=== PATIENT | male | born 1970 | race African-American/Black ===

== ENCOUNTER 2020-01-24 17:27 | Inpatient (IN) | payer MEDICAID ==
[~2020-01-24] VITALS: Ht 188 cm; Wt 111.0 kg
--- NOTE | 2020-01-24 18:03 | NUR ---
PT TO ROOM VIA WHEELCHAIR FROM TRIAGE. C/O PERSISTANT +SOB, RPTS THAT HE WAS SEEN AT [facility] LAST WEEK AND WAS D/C, BUT IS STILL EXPERIENCING SOB. PTS POSITION OF COMFORT IS TO BE SITTING UPRIGHT, IS UNABLE TO LAY BACK SOB INCREASES. LUNG SOUNDS DECREASED T/O WITH FAINT CRACKLES T/O. PT W/ HX OF CHF AND HAS A PACEMAKER.
--- NOTE | 2020-01-24 18:03 | NUR ---
RA SATS 88-89% 1L NC PLACED WITH EFFECT.
--- NOTE | 2020-01-24 18:05 | NUR ---
CALL LIGHT W/I REACH. AWAITING PROVIDER EVAL.
[2020-01-24] MEDS ORDERED: SODIUM CHLORIDE FLUSH 10ML SYR IVF ONE (18:30)
[2020-01-24 18:46] LABS: BASOPHILS # (AUTO) 0.02 x10^3/uL (0-0.1); BASOPHILS % (AUTO) 0 % (0-1); EOSINOPHILS # (AUTO) 0.17 x10^3/uL (0-0.4); EOSINOPHILS % (AUTO) 2 % (1-7); LYMPHOCYTES # (AUTO) 0.76 x10^3/uL (1-3.4); LYMPHOCYTES % (AUTO) 10 % (22-44); MD NO; MEAN CORPUSCULAR HEMOGLOBIN 26.8 pg (27.5-34.5); MEAN CORPUSCULAR HGB CONC 32.2 g/dL (33.2-36.2); MEAN CORPUSCULAR VOLUME 83.3 fL (81-97); MEAN PLATELET VOLUME 7.6 fL (7.4-10.4); MONOCYTES # (AUTO) 0.62 x10^3/uL (0.2-0.8); MONOCYTES % (AUTO) 8 % (2-9); NEUTROPHILS # (AUTO) 6.48 x10^3/uL (1.8-6.8); NEUTROPHILS % (AUTO) 81 % (42-75); PLATELET COUNT 418 x10^3/uL (130-400); RED BLOOD COUNT 4.83 x10^6/uL (4.38-5.82); RED CELL DISTRIBUTION WIDTH 16.4 % (9.4-14.8)
[2020-01-24 18:59] LABS: ALBUMIN 3.3 g/dL (3.4-5.0); ANION GAP 7 mmol/L (5-15); CALCIUM 9.1 mg/dL (8.5-10.1); CHLORIDE 107 mmol/L (98-107); CREATININE 1.45 mg/dL (0.7-1.3)
[2020-01-24] MEDS ORDERED: AZITHROMYCIN 500 MG in SODIUM CHLORIDE 0.9% 250 ML IVPB ONE (19:00)
[2020-01-24] MEDS ORDERED: CEFTRIAXONE PMX 1GM/50ML 50 ML IVPB ONE (19:00)
[2020-01-24 19:02] LABS: TROPONIN I < 0.015 ng/mL (0.000-0.045)
--- NOTE | 2020-01-24 19:20 | NUR ---
RECEIVED REPORT FROM NETTA BENDER. PT SITTING IN BED, IN A POSITION OF COMFORT. O2 INCREASED FROM 1L TO 2L, FOR COMFORT AND O2 SAT FROM 91 TO 98. PT DENIES PAIN, LAUGHING AT THE TV, UPDATED ON POC. WILL CONTINUE TO MONITOR AND WATCH FOR ORDERS.
[2020-01-24] MEDS ORDERED: CEFTRIAXONE PMX 1GM/50ML 50 ML ONE (19:23)
[2020-01-24] MEDS ORDERED: SPIR25TA5 PO (19:54)
[2020-01-24] MEDS ORDERED: FURO20TA3 PO (19:54)
[2020-01-24] MEDS ORDERED: POTASSIUM CL PO (19:54)
[2020-01-24] MEDS ORDERED: MAGN400T9 PO (19:54)
[2020-01-24] MEDS ORDERED: ONDANSETRON ODT 4 MG PO PRN (20:00)
[2020-01-24] MEDS ORDERED: GUAIFENESIN/DM 200-20MG, 10ML UDC PO PRN (20:00)
[2020-01-24] MEDS ORDERED: POLYETHYLENE GLYCOL 17 GM PACKET PO PRN (20:00)
[2020-01-24] MEDS ORDERED: BISACODYL 10 MG SUPP PR PRN (20:00)
[2020-01-24] MEDS ORDERED: ACETAMINOPHEN 325 MG TABLET PO PRN (20:00)
--- NOTE | 2020-01-24 20:32 | NUR ---
CONFRIMED BLOOD CULTURES HAD BEEN DRAWN BEFORE IV ABX STARTED.
[2020-01-24] MEDS: AZITHROMYCIN 500 MG in SODIUM CHLORIDE 0.9% 250 ML IV SCH (20:41)
[2020-01-24] MEDS: CEFTRIAXONE PMX 1GM/50ML 50 ML IV SCH (20:41)
--- NOTE | 2020-01-24 20:44 | NUR ---
PT CONDITION UNCHANGED. NO SIGNS OF DISTRESS, NO COMPLAINTS, CALL LIGHT WITHIN REACH. WILL CONTINUE TO MONITOR.
[2020-01-24] MEDS: POTASSIUM CHLORIDE 20 MEQ TAB.ER.PRT PO SCH ×2 (21:00→22:48)
--- NOTE | 2020-01-24 21:09 | NUR ---
REPORT GIVEN TO NETTA TEJEDA. PT SITTING IN BED, UPDATED ON POC. ALL NEEDS MET AT THIS TIME.
[2020-01-24] MEDS ORDERED: LOSA50TA14 PO (21:45)
[2020-01-24 22:01] VITALS: BP 126/94
[2020-01-24] MEDS: CARVEDILOL 6.25 MG TABLET PO SCH (22:43)
[2020-01-24] MEDS: HEPARIN 5,000 UNITS/ML, 1ML SQ SCH (22:47)
[2020-01-24] MEDS: FUROSEMIDE 40 MG/4 ML IV SCH (22:47)
[2020-01-24] MEDS: SODIUM CHLORIDE FLUSH 10ML SYR IVF SCH (22:48)
[2020-01-24 22:53] VITALS: BP 118/88
[2020-01-25 01:26] VITALS: BP 130/83
[2020-01-25 05:09] VITALS: BP 139/90
[2020-01-25] MEDS: HEPARIN 5,000 UNITS/ML, 1ML SQ SCH ×3 (05:17→20:04)
[2020-01-25] MEDS: CARVEDILOL 6.25 MG TABLET PO SCH ×2 (05:17→17:10)
[2020-01-25 06:14] VITALS: BP 136/102
[2020-01-25 06:37] VITALS: BP 131/93
[2020-01-25 07:11] LABS: MEAN CORPUSCULAR HEMOGLOBIN 26.9 pg (27.5-34.5); MEAN CORPUSCULAR HGB CONC 31.9 g/dL (33.2-36.2); MEAN CORPUSCULAR VOLUME 84.2 fL (81-97); MEAN PLATELET VOLUME 7.3 fL (7.4-10.4); PLATELET COUNT 401 x10^3/uL (130-400); RED BLOOD COUNT 4.78 x10^6/uL (4.38-5.82); RED CELL DISTRIBUTION WIDTH 16.1 % (9.4-14.8)
[2020-01-25 07:16] LABS: ANION GAP 9 mmol/L (5-15); CHLORIDE 107 mmol/L (98-107); CREATININE 1.35 mg/dL (0.7-1.3)
[2020-01-25 07:29] LABS: BASOPHILS # (AUTO) 0.02 x10^3/uL (0-0.1); BASOPHILS % (AUTO) 0 % (0-1); EOSINOPHILS # (AUTO) 0.18 x10^3/uL (0-0.4); EOSINOPHILS % (AUTO) 2 % (1-7); LYMPHOCYTES # (AUTO) 1.07 x10^3/uL (1-3.4); LYMPHOCYTES % (AUTO) 13 % (22-44); MD SCAN; MONOCYTES % (AUTO) 9 % (2-9); NEUTROPHILS # (AUTO) 6.16 x10^3/uL (1.8-6.8); NEUTROPHILS % (AUTO) 76 % (42-75)
[2020-01-25] MEDS: MAGNESIUM OXIDE 400 MG TABLET PO SCH (08:05)
[2020-01-25] MEDS: LISINOPRIL 5 MG TABLET PO SCH (08:05)
[2020-01-25] MEDS: POTASSIUM CHLORIDE 20 MEQ TAB.ER.PRT PO SCH ×2 (08:06→20:04)
[2020-01-25] MEDS: SPIRONOLACTONE 25 MG TABLET PO SCH (08:06)
[2020-01-25] MEDS: SENNA/DOCUSATE TABLET PO SCH (08:06)
[2020-01-25] MEDS ORDERED: POTASSIUM CL 20 MEQ PO SCH (09:00)
[2020-01-25] MEDS: FUROSEMIDE 40 MG/4 ML IV SCH (09:21)
[2020-01-25] MEDS: SODIUM CHLORIDE FLUSH 10ML SYR IVF SCH ×2 (09:21→20:05)
[2020-01-25 12:42] VITALS: BP 131/91
[2020-01-25] MEDS: ALBUTEROL SULFATE 2.5 MG/3 ML NPPB PRN (15:46)
[2020-01-25 19:12] VITALS: BP 129/75
[2020-01-25] MEDS: CEFTRIAXONE PMX 1GM/50ML 50 ML IV SCH (20:04)
[2020-01-25] MEDS: AZITHROMYCIN 500 MG in SODIUM CHLORIDE 0.9% 250 ML IV SCH (20:56)
[2020-01-26 00:14] VITALS: BP 116/78
[2020-01-26] MEDS: HEPARIN 5,000 UNITS/ML, 1ML SQ SCH ×3 (05:02→20:48)
[2020-01-26] MEDS: CARVEDILOL 6.25 MG TABLET PO SCH ×2 (05:02→17:01)
[2020-01-26 06:26] LABS: ANION GAP 6 mmol/L (5-15); CALCIUM 9.1 mg/dL (8.5-10.1); CHLORIDE 109 mmol/L (98-107)
[2020-01-26 06:28] LABS: CREATININE 1.25 mg/dL (0.7-1.3)
[2020-01-26 07:17] VITALS: BP 128/86
[2020-01-26] MEDS: LISINOPRIL 5 MG TABLET PO SCH (08:01)
[2020-01-26] MEDS: FUROSEMIDE 40 MG/4 ML IV SCH (08:01)
[2020-01-26] MEDS: SODIUM CHLORIDE FLUSH 10ML SYR IVF SCH ×2 (08:01→19:56)
[2020-01-26] MEDS: POTASSIUM CHLORIDE 20 MEQ TAB.ER.PRT PO SCH ×2 (08:01→12:23)
[2020-01-26] MEDS: MAGNESIUM OXIDE 400 MG TABLET PO SCH (08:01)
[2020-01-26] MEDS: SPIRONOLACTONE 25 MG TABLET PO SCH (08:01)
[2020-01-26] MEDS: SENNA/DOCUSATE TABLET PO SCH (08:01)
[2020-01-26] MEDS: ALBUTEROL SULFATE 2.5 MG/3 ML NPPB PRN (11:30)
[2020-01-26 12:10] VITALS: BP 129/95
[2020-01-26 19:34] VITALS: BP 124/86
[2020-01-26] MEDS: CEFTRIAXONE PMX 1GM/50ML 50 ML IV SCH (19:56)
[2020-01-26] MEDS: AZITHROMYCIN 500 MG in SODIUM CHLORIDE 0.9% 250 ML IV SCH (20:48)
[2020-01-27 01:43] VITALS: BP 123/87
[2020-01-27 04:52] LABS: ANION GAP 4 mmol/L (5-15); CALCIUM 8.8 mg/dL (8.5-10.1); CHLORIDE 108 mmol/L (98-107); CREATININE 1.36 mg/dL (0.7-1.3)
[2020-01-27] MEDS: CARVEDILOL 6.25 MG TABLET PO SCH ×2 (05:06→16:50)
[2020-01-27] MEDS: HEPARIN 5,000 UNITS/ML, 1ML SQ SCH ×3 (05:06→20:50)
[2020-01-27 07:40] VITALS: BP 123/88
[2020-01-27] MEDS: POTASSIUM CHLORIDE 20 MEQ TAB.ER.PRT PO SCH (08:34)
[2020-01-27] MEDS: FUROSEMIDE 40 MG/4 ML IV SCH (08:34)
[2020-01-27] MEDS: SODIUM CHLORIDE FLUSH 10ML SYR IVF SCH ×2 (08:35→20:51)
[2020-01-27] MEDS: MAGNESIUM OXIDE 400 MG TABLET PO SCH (08:35)
[2020-01-27] MEDS: SPIRONOLACTONE 25 MG TABLET PO SCH (08:35)
[2020-01-27] MEDS: SENNA/DOCUSATE TABLET PO SCH (08:35)
[2020-01-27] MEDS: SACUBITRIL/VALSARTAN 24MG-26MG TAB PO SCH ×2 (08:35→20:58)
[2020-01-27 14:50] VITALS: BP 124/94
[2020-01-27 15:58] LABS: C-REACTIVE PROTEIN, QUANT 1.9 mg/dL (0.02-0.49)
[2020-01-27] MEDS: FUROSEMIDE 40 MG TABLET PO SCH (16:50)
[2020-01-27] MEDS ORDERED: OMNIPAQUE 350 MG/ML, 75ML BOTTLE ONE (17:51)
[2020-01-27] MEDS: GUAIFENESIN ER 600 MG TABLET PO SCH (20:51)
[2020-01-27] MEDS: CEFTRIAXONE PMX 1GM/50ML 50 ML IV SCH (20:58)
[2020-01-27] MEDS: DOXYCYCLINE 100MG TABLET PO SCH (20:59)
[2020-01-28 02:46] VITALS: BP 125/82
[2020-01-28] MEDS: HEPARIN 5,000 UNITS/ML, 1ML SQ SCH ×3 (05:13→21:01)
[2020-01-28] MEDS: CARVEDILOL 6.25 MG TABLET PO SCH (05:13)
[2020-01-28 07:21] LABS: ALANINE AMINOTRANSFERASE 14 U/L (12-78); ANION GAP 9 mmol/L (5-15); BILIRUBIN, DIRECT 0.3 mg/dL (0.1-0.2); CALCIUM 9.1 mg/dL (8.5-10.1); CHLORIDE 107 mmol/L (98-107); CREATININE 1.14 mg/dL (0.7-1.3)
[2020-01-28 07:24] LABS: ALKALINE PHOSPHATASE 56 U/L (45-117); BILIRUBIN,TOTAL 1.3 mg/dL (0.2-1.0); TOTAL PROTEIN 7.6 g/dL (6.4-8.2)
[2020-01-28 07:27] LABS: BASOPHILS # (AUTO) 0.05 x10^3/uL (0-0.1); BASOPHILS % (AUTO) 1 % (0-1); EOSINOPHILS # (AUTO) 0.26 x10^3/uL (0-0.4); EOSINOPHILS % (AUTO) 4 % (1-7); LYMPHOCYTES # (AUTO) 1.28 x10^3/uL (1-3.4); LYMPHOCYTES % (AUTO) 20 % (22-44); MD NO; MEAN CORPUSCULAR HEMOGLOBIN 27.2 pg (27.5-34.5); MEAN CORPUSCULAR HGB CONC 32.6 g/dL (33.2-36.2); MEAN CORPUSCULAR VOLUME 83.6 fL (81-97); MEAN PLATELET VOLUME 7.4 fL (7.4-10.4); MONOCYTES # (AUTO) 0.83 x10^3/uL (0.2-0.8); MONOCYTES % (AUTO) 13 % (2-9); NEUTROPHILS # (AUTO) 3.96 x10^3/uL (1.8-6.8); NEUTROPHILS % (AUTO) 62 % (42-75); PLATELET COUNT 399 x10^3/uL (130-400); RED BLOOD COUNT 4.82 x10^6/uL (4.38-5.82); RED CELL DISTRIBUTION WIDTH 16.2 % (9.4-14.8)
[2020-01-28 07:32] LABS: INTERNATIONAL NORMALIZED RATIO 1.16 (0.93-1.1); PROTHROMBIN TIME 12.3 Seconds (9.6-11.5)
[2020-01-28] MEDS: SODIUM CHLORIDE FLUSH 10ML SYR IVF SCH ×2 (07:54→21:02)
[2020-01-28] MEDS: POTASSIUM CHLORIDE 20 MEQ TAB.ER.PRT PO SCH (07:54)
[2020-01-28] MEDS: SPIRONOLACTONE 25 MG TABLET PO SCH (07:54)
[2020-01-28] MEDS: SENNA/DOCUSATE TABLET PO SCH (07:54)
[2020-01-28] MEDS: SACUBITRIL/VALSARTAN 24MG-26MG TAB PO SCH ×2 (07:54→21:02)
[2020-01-28] MEDS: MAGNESIUM OXIDE 400 MG TABLET PO SCH (07:54)
[2020-01-28] MEDS: GUAIFENESIN ER 600 MG TABLET PO SCH ×2 (07:54→21:03)
[2020-01-28] MEDS: DOXYCYCLINE 100MG TABLET PO SCH ×2 (07:54→21:02)
[2020-01-28] MEDS: FUROSEMIDE 40 MG TABLET PO SCH ×2 (07:54→16:53)
[2020-01-28 08:00] VITALS: BP 152/113
[2020-01-28 14:00] VITALS: BP 119/93
[2020-01-28] MEDS: CARVEDILOL 12.5 MG TABLET PO SCH (16:53)
[2020-01-28 20:00] VITALS: BP 112/82
[2020-01-28] MEDS: CEFTRIAXONE PMX 1GM/50ML 50 ML IV SCH (21:00)
[2020-01-29 02:00] VITALS: BP 119/83
[2020-01-29] MEDS: HEPARIN 5,000 UNITS/ML, 1ML SQ SCH ×3 (03:18→20:33)
[2020-01-29] MEDS: CARVEDILOL 12.5 MG TABLET PO SCH ×2 (06:20→17:19)
[2020-01-29 08:00] VITALS: BP 103/49
[2020-01-29] MEDS: GUAIFENESIN ER 600 MG TABLET PO SCH ×2 (08:04→20:33)
[2020-01-29] MEDS: SPIRONOLACTONE 25 MG TABLET PO SCH (08:04)
[2020-01-29] MEDS: POTASSIUM CHLORIDE 20 MEQ TAB.ER.PRT PO SCH (08:04)
[2020-01-29] MEDS: SACUBITRIL/VALSARTAN 24MG-26MG TAB PO SCH ×2 (08:04→20:33)
[2020-01-29] MEDS: SENNA/DOCUSATE TABLET PO SCH (08:04)
[2020-01-29] MEDS: DOXYCYCLINE 100MG TABLET PO SCH ×2 (08:04→20:33)
[2020-01-29] MEDS: MAGNESIUM OXIDE 400 MG TABLET PO SCH (08:04)
[2020-01-29] MEDS: SODIUM CHLORIDE FLUSH 10ML SYR IVF SCH ×2 (08:04→20:33)
[2020-01-29] MEDS: FUROSEMIDE 40 MG TABLET PO SCH ×2 (08:05→17:19)
[2020-01-29 13:35] VITALS: BP 112/87
[2020-01-29 20:30] VITALS: BP 113/83
[2020-01-29] MEDS: CEFTRIAXONE PMX 1GM/50ML 50 ML IV SCH (20:32)
[2020-01-30 02:49] VITALS: BP 105/75
[2020-01-30] MEDS: HEPARIN 5,000 UNITS/ML, 1ML SQ SCH ×3 (04:54→22:21)
[2020-01-30] MEDS: CARVEDILOL 12.5 MG TABLET PO SCH ×2 (04:54→16:24)
[2020-01-30] MEDS: MAGNESIUM OXIDE 400 MG TABLET PO SCH (07:52)
[2020-01-30] MEDS: DOXYCYCLINE 100MG TABLET PO SCH ×2 (07:52→22:22)
[2020-01-30] MEDS: POTASSIUM CHLORIDE 20 MEQ TAB.ER.PRT PO SCH (07:52)
[2020-01-30] MEDS: FUROSEMIDE 40 MG TABLET PO SCH ×2 (07:52→16:24)
[2020-01-30] MEDS: GUAIFENESIN ER 600 MG TABLET PO SCH ×2 (07:52→22:22)
[2020-01-30] MEDS: SODIUM CHLORIDE FLUSH 10ML SYR IVF SCH ×2 (07:52→22:24)
[2020-01-30] MEDS: SACUBITRIL/VALSARTAN 24MG-26MG TAB PO SCH ×2 (07:52→22:21)
[2020-01-30] MEDS: SPIRONOLACTONE 25 MG TABLET PO SCH (07:52)
[2020-01-30] MEDS: SENNA/DOCUSATE TABLET PO SCH (07:55)
[2020-01-30 08:00] VITALS: BP 126/90
[2020-01-30] MEDS ORDERED: TEMAZEPAM 15 MG CAPSULE PO PRN (10:30)
[2020-01-30 14:08] VITALS: BP 114/71
[2020-01-30 20:30] VITALS: BP 113/73
[2020-01-30] MEDS: CEFTRIAXONE PMX 1GM/50ML 50 ML IV SCH (22:23)
[2020-01-31 02:27] VITALS: BP 99/66
[2020-01-31] MEDS: HEPARIN 5,000 UNITS/ML, 1ML SQ SCH ×3 (04:28→20:41)
[2020-01-31] MEDS ORDERED: ALUMINUM/MAG/SIMETHICONE 30 ML UDC PO PRN (04:30)
[2020-01-31 05:41] VITALS: BP 115/66
[2020-01-31] MEDS: CARVEDILOL 12.5 MG TABLET PO SCH ×2 (05:43→17:26)
[2020-01-31 05:49] LABS: ALBUMIN 3.2 g/dL (3.4-5.0); ANION GAP 4 mmol/L (5-15); CALCIUM 9.4 mg/dL (8.5-10.1); CHLORIDE 104 mmol/L (98-107)
[2020-01-31 05:52] LABS: ALANINE AMINOTRANSFERASE 23 U/L (12-78); ALKALINE PHOSPHATASE 59 U/L (45-117); BILIRUBIN,TOTAL 0.7 mg/dL (0.2-1.0); CREATININE 1.21 mg/dL (0.7-1.3); TOTAL PROTEIN 8.3 g/dL (6.4-8.2)
[2020-01-31 07:36] VITALS: BP 105/78
[2020-01-31] MEDS: SODIUM CHLORIDE FLUSH 10ML SYR IVF SCH ×2 (09:00→20:41)
[2020-01-31] MEDS: SENNA/DOCUSATE TABLET PO SCH (09:00)
[2020-01-31] MEDS: DOXYCYCLINE 100MG TABLET PO SCH ×2 (09:28→20:41)
[2020-01-31] MEDS: MAGNESIUM OXIDE 400 MG TABLET PO SCH (09:28)
[2020-01-31] MEDS: SPIRONOLACTONE 25 MG TABLET PO SCH (09:28)
[2020-01-31] MEDS: GUAIFENESIN ER 600 MG TABLET PO SCH ×2 (09:28→20:41)
[2020-01-31] MEDS: SACUBITRIL/VALSARTAN 24MG-26MG TAB PO SCH ×2 (09:28→20:41)
[2020-01-31] MEDS: FUROSEMIDE 40 MG TABLET PO SCH ×2 (09:28→17:26)
[2020-01-31] MEDS: POTASSIUM CHLORIDE 20 MEQ TAB.ER.PRT PO SCH (09:28)
[2020-01-31 14:01] VITALS: BP 105/71
[2020-01-31] MEDS: CEFTRIAXONE PMX 1GM/50ML 50 ML IV SCH (20:40)
[2020-01-31 20:48] VITALS: BP 94/67
[2020-02-01 01:30] VITALS: BP 114/80
[2020-02-01] MEDS: HEPARIN 5,000 UNITS/ML, 1ML SQ SCH ×2 (04:22→12:09)
[2020-02-01] MEDS: CARVEDILOL 12.5 MG TABLET PO SCH (05:31)
[2020-02-01 05:32] VITALS: BP 105/67
[2020-02-01 07:12] VITALS: BP 98/64
[2020-02-01 07:19] LABS: CHLORIDE 104 mmol/L (98-107)
[2020-02-01 07:27] LABS: ANION GAP 7 mmol/L (5-15); CALCIUM 9.9 mg/dL (8.5-10.1); CREATININE 1.31 mg/dL (0.7-1.3)
[2020-02-01] MEDS: SACUBITRIL/VALSARTAN 24MG-26MG TAB PO SCH (09:13)
[2020-02-01] MEDS: DOXYCYCLINE 100MG TABLET PO SCH (09:13)
[2020-02-01] MEDS: MAGNESIUM OXIDE 400 MG TABLET PO SCH (09:13)
[2020-02-01] MEDS: FUROSEMIDE 40 MG TABLET PO SCH (09:14)
[2020-02-01] MEDS: GUAIFENESIN ER 600 MG TABLET PO SCH (09:14)
[2020-02-01] MEDS: SODIUM CHLORIDE FLUSH 10ML SYR IVF SCH (09:14)
[2020-02-01] MEDS: SPIRONOLACTONE 25 MG TABLET PO SCH (09:14)
[2020-02-01] MEDS: POTASSIUM CHLORIDE 20 MEQ TAB.ER.PRT PO SCH (09:14)
[2020-02-01] MEDS: SENNA/DOCUSATE TABLET PO SCH (09:15)
[2020-02-01] MEDS ORDERED: SIMETHICONE 80 MG CHEW TAB PO PRN (11:30)
[2020-02-01 12:56] VITALS: BP 102/72
[2020-02-01] MEDS ORDERED: POTASSIUM CL PO (14:37)
[2020-02-01] MEDS ORDERED: SACU1TAB PO (14:37)
[2020-02-01] MEDS ORDERED: CARV12.52 PO (14:37)
[2020-02-01] MEDS ORDERED: FURO-92 PO (14:37)
== END 2020-02-01 17:00 | disposition home or self-care (01) | DRG 133 ==
LOC: ED 19:59 → EDIP 21:29 → 4WST 21:30 → ICU 01-27 12:39 → 5SO 01-30 20:08 → DCLOUNGE 02-01 16:45
PROVIDERS: ADMIT Internal Medicine; ATTEND Hospitalist
DX: J96.01 Acute respiratory failure with hypoxia (principal); N17.0 Acute kidney failure with tubular necrosis; I47.2 Ventricular tachycardia; I50.43 Acute on chronic combined systolic (congestive) and diastolic (congestive) heart failure; I11.0 Hypertensive heart disease with heart failure; J15.9 Unspecified bacterial pneumonia; I27.20 Pulmonary hypertension, unspecified; I48.0 Paroxysmal atrial fibrillation; D64.9 Anemia, unspecified; E87.6 Hypokalemia; F12.90 Cannabis use, unspecified, uncomplicated; I25.10 Atherosclerotic heart disease of native coronary artery without angina pectoris; I25.5 Ischemic cardiomyopathy; Z20.828 Contact with and (suspected) exposure to other viral communicable diseases; R59.0 Localized enlarged lymph nodes; Z82.49 Family history of ischemic heart disease and other diseases of the circulatory system; Z83.3 Family history of diabetes mellitus; Z91.19 Patient's noncompliance with other medical treatment and regimen; Z95.810 Presence of automatic (implantable) cardiac defibrillator
CPT/HCPCS: 36415; 71045; 71260; 80048; 80053; 80076; 82040; 83605; 83615; 83735; 83880; 84145; 84484; 85025; 85379; 85610; 86140; 86480; 87015; 87040; 87070; 87081; 87116; 87205; 87206; 87806; 93005; 93306; 93356; 94640; 96365; 96375; 99285; G0378; J0456; J0696; J1644; J1940; J7613; Q0162; Q9967; G0475; J7050; U0001-CS

== ENCOUNTER 2020-03-19 05:51 | Inpatient (IN) | payer MEDICAID ==
[~2020-03-19] VITALS: Ht 188 cm; Wt 118.1 kg
[~2020-03-19 05:51] MED LIST: CARV12.52 PO; FURO-92 PO; FURO20TA3 PO; LOSA50TA14 PO; MAGN400T9 PO; POTASSIUM CL PO; SACU1TAB PO; SPIR25TA5 PO
[2020-03-19] MEDS ORDERED: SODIUM CHLORIDE 0.9% 1,000 ML IV ONE (05:55)
[2020-03-19] MEDS ORDERED: ADENOSINE 6 MG/2 ML ONE ×2 (05:59→08:00)
[2020-03-19] MEDS ORDERED: ADENOSINE 6 MG/2 ML IVPush ONE ×2 (06:00→06:30)
[2020-03-19] MEDS ORDERED: SODIUM CHLORIDE FLUSH 10ML SYR IVF ONE (06:00)
--- NOTE | 2020-03-19 06:15 | NUR ---
PT BIB EMS FOLLOWING HIS ICD FIRING TWICE THIS AM. PT WAS RECENTLY HOSPITALIZED FOR PNEUMONIA. UPON EMS ARRIVAL, PT HEART RATE WAS 180-188, ASYMPTOMATIC. PT PLACED ON GURNEY, EKG COMPLETED AND MONITORS PLACED. CODE CART IN ROOM, PT PLACED ON PADS PRIOR TO 6 MG ADENOSINE ADMIN. 6 MG WAS NOT ADEQUATE TO CONVERT PT. PT GIVEN ADDITIONAL 12MG ADENOSINE AND RATE SLOWED TO 100. EKG REPEATED. PT MEDICATED PER EMAR. WILL CONINUE TO MONITOR.
--- NOTE | 2020-03-19 06:21 | NUR ---
PT ICD BEING INTERROGATED AT THIS TIME.
[2020-03-19] MEDS ORDERED: MAGNESIUM SULFATE/D5W 100 ML IVPB ONE (06:30)
[2020-03-19 06:38] LABS: BASOPHILS # (AUTO) 0.02 x10^3/uL (0-0.1); BASOPHILS % (AUTO) 0 % (0-1); EOSINOPHILS # (AUTO) 0.13 x10^3/uL (0-0.4); EOSINOPHILS % (AUTO) 1 % (1-7); LYMPHOCYTES # (AUTO) 0.93 x10^3/uL (1-3.4); LYMPHOCYTES % (AUTO) 10 % (22-44); MD NO; MEAN CORPUSCULAR HEMOGLOBIN 27.3 pg (27.5-34.5); MEAN CORPUSCULAR HGB CONC 33.1 g/dL (33.2-36.2); MEAN CORPUSCULAR VOLUME 82.5 fL (81-97); MONOCYTES # (AUTO) 0.79 x10^3/uL (0.2-0.8); MONOCYTES % (AUTO) 8 % (2-9); NEUTROPHILS % (AUTO) 80 % (42-75); PLATELET COUNT 437 x10^3/uL (130-400); RED BLOOD COUNT 4.53 x10^6/uL (4.38-5.82); RED CELL DISTRIBUTION WIDTH 17.6 % (9.4-14.8)
[2020-03-19 06:49] LABS: ALBUMIN 3.3 g/dL (3.4-5.0); ANION GAP 6 mmol/L (5-15); CALCIUM 8.9 mg/dL (8.5-10.1); CHLORIDE 110 mmol/L (98-107); CREATININE 1.38 mg/dL (0.7-1.3)
[2020-03-19] MEDS ORDERED: AMIODARONE 150 MG in DEXTROSE 5% 97 ML IV ONE (07:00)
--- NOTE | 2020-03-19 07:00 | NUR ---
REPORT RECEIEVED FROM ZENAIDA CHADWICK. THIS IS A 50 YO M W/ C/O SVT UPON ARRIVAL. PER RN PT RATE WAS IN 180'S. RECEIVED 18 OF ADENOSINE W/ DESIRED EFFECT. PT HR NOW IN 90-100'S. PT RESTING ON GURNEY W/ CALL LIGHT IN REACH, RESP EVEN AND UNLABORED, VSS, NADN. CONVERSING W/O DIFFICULTY. AWARE OF POC FOR ADMIT. IVF INSUFING APPROPRIATELY. DENIES FURTHER NEEDS AT THIS TIME.
--- NOTE | 2020-03-19 07:10 | NUR ---
MED EDMAR FROM PHARMACY.
[2020-03-19] MEDS ORDERED: FILTER 0.22 MICRON IV PRN (07:30)
[2020-03-19] MEDS ORDERED: NS + 40MEQ KCL 1,000 ML IV ONE (07:38)
--- NOTE | 2020-03-19 07:45 | NUR ---
MED EDMAR FROM PHARMACY
[2020-03-19] MEDS: AMIODARONE 450 MG in DEXTROSE 5% 241 ML IV PRN ×2 (07:51→21:27)
[2020-03-19] MEDS ORDERED: SODIUM CHLORIDE FLUSH 10ML SYR IVF PRN (08:00)
[2020-03-19] MEDS ORDERED: POTASSIUM CHLORIDE 20 MEQ TAB.ER.PRT PO ONE (08:00)
[2020-03-19] MEDS ORDERED: ONDANSETRON 2MG/ML, 2ML IVPush PRN (08:00)
--- NOTE | 2020-03-19 08:06 | NUR ---
CALLED FOR CLARIFICATION ON FLUIDS ORDERED. REPORTS SHE WILL DC ALL FLUIDS ORDERED AND SHE ONLY WANS POTASSIUM GIVEN.
[2020-03-19] MEDS ORDERED: POTASSIUM CHLORIDE 20 MEQ TAB.ER.PRT ONE (08:08)
[2020-03-19] MEDS ORDERED: LORazepam 2 MG/ML, 1ML ONE (08:21)
[2020-03-19] MEDS ORDERED: LORazepam 2 MG/ML, 1ML IVPush ONE (08:30)
[2020-03-19] MEDS ORDERED: POTASSIUM CHLORIDE 20 MEQ in SODIUM CHLORIDE 0.9% 250 ML IV ONE (08:44)
[2020-03-19 10:00] VITALS: BP 150/107
[2020-03-19] MEDS: SACUBITRIL/VALSARTAN 24MG-26MG TAB PO SCH ×2 (10:26→21:26)
[2020-03-19] MEDS: SPIRONOLACTONE 25 MG TABLET PO SCH (10:26)
[2020-03-19 12:49] VITALS: BP 154/115
[2020-03-19 14:17] VITALS: BP 154/115
[2020-03-19] MEDS ORDERED: ENALAPRILAT 1.25 MG/ML, 2ML IV PRN (15:30)
[2020-03-19] MEDS ORDERED: LORazepam 2 MG/ML, 1ML IVPush PRN (15:30)
[2020-03-19] MEDS: ENOXAPARIN 40 MG/0.4 ML SQ SCH (17:29)
[2020-03-19] MEDS: CARVEDILOL 25 MG TABLET PO SCH (17:29)
[2020-03-19] MEDS ORDERED: CARVEDILOL 12.5 MG TABLET PO SCH (18:00)
[2020-03-19 19:50] VITALS: BP 126/86
[2020-03-19] MEDS ORDERED: AMIODARONE 450 MG in DEXTROSE 5% 241 ML IV PRN (22:00)
[2020-03-20 01:26] VITALS: BP 133/90
[2020-03-20] MEDS: CARVEDILOL 25 MG TABLET PO SCH ×2 (05:52→17:11)
[2020-03-20 06:48] LABS: BASOPHILS # (AUTO) 0.01 x10^3/uL (0-0.1); BASOPHILS % (AUTO) 0 % (0-1); EOSINOPHILS % (AUTO) 2 % (1-7); LYMPHOCYTES # (AUTO) 1.25 x10^3/uL (1-3.4); LYMPHOCYTES % (AUTO) 12 % (22-44); MD NO; MEAN CORPUSCULAR HEMOGLOBIN 26.6 pg (27.5-34.5); MEAN CORPUSCULAR HGB CONC 32.1 g/dL (33.2-36.2); MEAN CORPUSCULAR VOLUME 82.9 fL (81-97); MEAN PLATELET VOLUME 7.1 fL (7.4-10.4); MONOCYTES # (AUTO) 0.75 x10^3/uL (0.2-0.8); MONOCYTES % (AUTO) 7 % (2-9); NEUTROPHILS # (AUTO) 8.72 x10^3/uL (1.8-6.8); NEUTROPHILS % (AUTO) 80 % (42-75); PLATELET COUNT 427 x10^3/uL (130-400); RED BLOOD COUNT 4.57 x10^6/uL (4.38-5.82); RED CELL DISTRIBUTION WIDTH 17.4 % (9.4-14.8)
[2020-03-20 06:59] LABS: ANION GAP 9 mmol/L (5-15); CALCIUM 8.4 mg/dL (8.5-10.1); CHLORIDE 106 mmol/L (98-107); CREATININE 1.16 mg/dL (0.7-1.3)
[2020-03-20 07:25] VITALS: BP 140/96
[2020-03-20] MEDS: SPIRONOLACTONE 25 MG TABLET PO SCH (08:14)
[2020-03-20] MEDS: SACUBITRIL/VALSARTAN 24MG-26MG TAB PO SCH ×2 (08:14→20:12)
[2020-03-20] MEDS ORDERED: BUTALB/APAP/CAFFEINE 50MG/325MG/40MG PO PRN (08:30)
[2020-03-20] MEDS: AMIODARONE 200 MG TABLET PO SCH ×2 (10:11→20:12)
[2020-03-20 15:00] VITALS: BP 148/64
[2020-03-20 15:10] VITALS: BP 101/64
[2020-03-20 17:11] VITALS: BP 125/84
[2020-03-20] MEDS: ENOXAPARIN 40 MG/0.4 ML SQ SCH (17:11)
[2020-03-20] MEDS: POTASSIUM CHLORIDE 20 MEQ PACKET PO SCH (17:11)
[2020-03-20 19:40] VITALS: BP 121/74
[2020-03-20] MEDS: IBUPROFEN 200 MG TABLET PO PRN (20:12)
[2020-03-21 01:00] VITALS: BP 117/84
[2020-03-21 05:50] VITALS: BP 126/89
[2020-03-21] MEDS: CARVEDILOL 25 MG TABLET PO SCH ×2 (05:57→17:16)
[2020-03-21 06:26] LABS: ANION GAP 7 mmol/L (5-15); CALCIUM 8.4 mg/dL (8.5-10.1); CHLORIDE 106 mmol/L (98-107)
[2020-03-21 06:27] LABS: CREATININE 1.08 mg/dL (0.7-1.3)
[2020-03-21] MEDS: SPIRONOLACTONE 50 MG TABLET PO SCH (08:10)
[2020-03-21] MEDS: POTASSIUM CHLORIDE 20 MEQ PACKET PO SCH ×2 (08:10→17:16)
[2020-03-21] MEDS: SACUBITRIL/VALSARTAN 24MG-26MG TAB PO SCH ×2 (08:10→20:57)
[2020-03-21] MEDS: AMIODARONE 200 MG TABLET PO SCH ×2 (08:10→20:58)
[2020-03-21 08:12] VITALS: BP 133/92
[2020-03-21] MEDS ORDERED: MAGNESIUM SULFATE PMX 2GM/50ML 50 ML IV ONE (09:30)
[2020-03-21] MEDS ORDERED: POTASSIUM CHLORIDE 20 MEQ TAB.ER.PRT PO ONE (09:30)
[2020-03-21] MEDS ORDERED: TEMAZEPAM 15 MG CAPSULE PO PRN (10:30)
[2020-03-21 16:38] VITALS: BP 127/89
[2020-03-21] MEDS: ENOXAPARIN 40 MG/0.4 ML SQ SCH (17:16)
[2020-03-21] MEDS: IBUPROFEN 200 MG TABLET PO PRN (18:32)
[2020-03-21 19:32] VITALS: BP 113/74
[2020-03-21] MEDS ORDERED: TRAZODONE 50MG TABLET PO SCH (21:00)
[2020-03-22 01:36] VITALS: BP 117/87
[2020-03-22 05:48] VITALS: BP 120/75
[2020-03-22 05:48] LABS: BASOPHILS # (AUTO) 0.02 x10^3/uL (0-0.1); BASOPHILS % (AUTO) 0 % (0-1); EOSINOPHILS # (AUTO) 0.19 x10^3/uL (0-0.4); EOSINOPHILS % (AUTO) 2 % (1-7); LYMPHOCYTES # (AUTO) 1.24 x10^3/uL (1-3.4); LYMPHOCYTES % (AUTO) 13 % (22-44); MD NO; MEAN CORPUSCULAR HEMOGLOBIN 27.1 pg (27.5-34.5); MEAN CORPUSCULAR HGB CONC 32.3 g/dL (33.2-36.2); MEAN CORPUSCULAR VOLUME 83.8 fL (81-97); MEAN PLATELET VOLUME 7.6 fL (7.4-10.4); MONOCYTES # (AUTO) 1.02 x10^3/uL (0.2-0.8); MONOCYTES % (AUTO) 10 % (2-9); NEUTROPHILS # (AUTO) 7.51 x10^3/uL (1.8-6.8); NEUTROPHILS % (AUTO) 75 % (42-75); PLATELET COUNT 428 x10^3/uL (130-400); RED BLOOD COUNT 4.46 x10^6/uL (4.38-5.82); RED CELL DISTRIBUTION WIDTH 17.9 % (9.4-14.8)
[2020-03-22] MEDS: CARVEDILOL 25 MG TABLET PO SCH (05:48)
[2020-03-22 06:03] LABS: CHLORIDE 110 mmol/L (98-107)
[2020-03-22 06:16] LABS: ANION GAP 7 mmol/L (5-15); CALCIUM 8.5 mg/dL (8.5-10.1); CREATININE 1.08 mg/dL (0.7-1.3)
[2020-03-22 07:50] VITALS: BP 112/80
[2020-03-22] MEDS: SPIRONOLACTONE 50 MG TABLET PO SCH (07:56)
[2020-03-22] MEDS: SACUBITRIL/VALSARTAN 24MG-26MG TAB PO SCH (07:56)
[2020-03-22] MEDS: AMIODARONE 200 MG TABLET PO SCH (07:56)
[2020-03-22] MEDS ORDERED: CARV25TA12 PO (10:24)
[2020-03-22] MEDS ORDERED: SACU1TAB PO (10:24)
[2020-03-22] MEDS ORDERED: SPIR50TA PO (10:24)
[2020-03-22] MEDS ORDERED: AMIO200T42 PO (10:24)
== END 2020-03-22 12:00 | disposition home or self-care (01) | DRG 206 ==
LOC: ED 07:17 → EDIP 07:43 → SUATTDRO 07:56 → 5SO 09:50 → DCLOUNGE 03-22 11:38
PROVIDERS: ADMIT Hospitalist; ATTEND Hospitalist
PROC: 5A2204Z Restoration of Cardiac Rhythm, Single (ICD-10-PCS; principal; 2020-03-19)
DX: T82.198A Other mechanical complication of other cardiac electronic device, initial encounter (principal); I47.2 Ventricular tachycardia; E66.9 Obesity, unspecified; E87.6 Hypokalemia; I11.0 Hypertensive heart disease with heart failure; I25.5 Ischemic cardiomyopathy; I50.22 Chronic systolic (congestive) heart failure; M10.9 Gout, unspecified; Y83.8 Other surgical procedures as the cause of abnormal reaction of the patient, or of later complication, without mention of misadventure at the time of the procedure; Z68.33 Body mass index [BMI] 33.0-33.9, adult; Z79.899 Other long term (current) drug therapy; Z82.49 Family history of ischemic heart disease and other diseases of the circulatory system; Z87.891 Personal history of nicotine dependence; Z95.810 Presence of automatic (implantable) cardiac defibrillator; Y92.89 Other specified places as the place of occurrence of the external cause; Z83.3 Family history of diabetes mellitus
CPT/HCPCS: 36415; 71045; 80048; 82040; 82550; 83735; 83880; 84484; 85025; 93005; G0378; J0153; J1650; J3480; J7060; J0282; J2060; J3475; J7050